=== PATIENT | male | born 1980 | race Caucasian/White ===

== ENCOUNTER 2020-04-23 23:21 | Emergency (ER) | payer OTHER ==
[~2020-04-23] VITALS: Ht 180.3 cm; Wt 86.2 kg
[~2020-04-23 23:21] MED LIST: PERCOCET 5-3251 EACH PO
[2020-04-23 23:23] VITALS: BP 143/91
[2020-04-23] MEDS ORDERED: LORAZEPAM 0.50.5 MG PO (23:26)
== END 2020-04-24 00:11 | disposition home or self-care (01) ==
LOC: ER 23:21
DX: S06.0X0A Concussion without loss of consciousness, initial encounter (principal); S00.83XA Contusion of other part of head, initial encounter; Z79.899 Other long term (current) drug therapy; W21.07XA Struck by softball, initial encounter; Y93.89 Activity, other specified; Y92.89 Other specified places as the place of occurrence of the external cause; Y99.8 Other external cause status